=== PATIENT | male | born 1965 | race Caucasian/White ===

== ENCOUNTER 2024-03-17 09:55 | Inpatient (IN) | payer SELFPAY ==
[~2024-03-17] VITALS: Ht 172.7 cm; Wt 72.0 kg
[2024-03-17 09:57] VITALS: O2SAT 98
[2024-03-17] MEDS ORDERED: IBUP-2029 MT (14:05)
[2024-03-17 15:19] LABS: BASOPHILS % 0.6 % (0.0-2.0); DIFFERENTIAL COMMENT 0; EOSINOPHILS % 0.1 % (0.0-5.0); HEMATOCRIT. 34.2 % (42.0-52.0); HEMOGLOBIN. 11.6 g/dL (14.0-18.0); LYMPHOCYTES % 7.8 % (20.0-50.0); MEAN CORPUSCULAR HEMOGLOBIN 36.2 pg (28.0-32.0); MEAN CORPUSCULAR HGB CONC 33.9 g/dL (31.0-37.0); MEAN CORPUSCULAR VOLUME 106.7 fL (80.0-94.0); MEAN PLATELET VOLUME 9.5 fl (7.4-10.4); MONOCYTES % 10.8 % (2.0-8.0); NEUTROPHILS % 80.7 % (40.0-76.0); PLATELET 191 x1000/uL (130-400); RED BLOOD CELL COUNT 3.21 mill/uL (4.7-6.1); RED CELL DISTRIBUTION WIDTH 14.7 % (11.6-14.6); WHITE BLOOD COUNT 9.9 x1000/uL (4.5-11.0)
[2024-03-17 15:28] LABS: CHLORIDE 102 mEq/L (98-107); POTASSIUM 4.2 mEq/L (3.5-5.1); SODIUM 136 mEq/L (136-145)
[2024-03-17 15:29] LABS: CARBON DIOXIDE 24 mEq/L (21-32)
[2024-03-17 15:30] LABS: CALCIUM 8.5 mg/dL (8.7-10.4)
[2024-03-17 15:34] LABS: CREATININE 0.7 mg/dL (0.6-1.3)
[2024-03-17 15:35] LABS: ETHANOL BLOOD 11 mg/dL (<10); GLUCOSE 88 mg/dL (70-105); UREA NITROGEN BLOOD 8 mg/dL (9-23)
[2024-03-17 15:36] LABS: ALANINE AMINOTRANSFERASE 59 IU/L (10-49); ALBUMIN 2.9 g/dL (3.2-4.8); ASPARTATE AMINOTRANSFERASE 110 IU/L (<34)
[2024-03-17 15:37] LABS: BILIRUBIN DIRECT 0.8 mg/dL (<=3.0); BILIRUBIN TOTAL 1.3 mg/dL (0.1-1.0); PROTEIN TOTAL 6.3 g/dL (6.0-8.3)
[2024-03-17 15:38] LABS: INR 1.1; PROTHROMBIN TIME 11.8 sec (9.6-11.0)
[2024-03-17] MEDS ORDERED: CLOPIDOGREL 75MG TABLET PO ONE (16:30)
[2024-03-17] MEDS ORDERED: CHLORDIAZEPOXIDE 25MG CAPSULE PO ONE (16:30)
[2024-03-17] MEDS ORDERED: ASPIRIN 325MG EC TABLET PO ONE (16:30)
[2024-03-17 17:07] LABS: CLARITY URINE CLOUDY (CLEAR); COLOR URINE ORANGE (YELLOW); GLUCOSE URINE NEGATIVE (NEGATIVE); KETONES URINE 2+ (NEGATIVE); LEUKOCYTE ESTERASE URINE TRACE (NEGATIVE); NITRITE URINE NEGATIVE (NEGATIVE); OCCULT BLOOD URINE NEGATIVE (NEGATIVE); PH URINE 7.5 (4.5-8.0); PROTEIN URINE TRACE (NEGATIVE); SPECIFIC GRAVITY URINE 1.012 (1.005-1.030)
[2024-03-17 18:10] LABS: BACTERIA URINE 3+
[2024-03-17 18:11] LABS: TROPONIN I HIGH SENSITIVITY 116 ng/L (3.0-53)
[2024-03-17 18:11] LABS: RBC URINE 0-2 /hpf (0-2); SQUAMOUS EPITHELIAL CELL URINE FEW /lpf (RARE/1+); WBC URINE 0-2 /hpf (0-2)
[2024-03-17] MEDS: ASPIRIN 325MG EC TABLET PO NR (18:22)
[2024-03-17] MEDS: CLOPIDOGREL 75MG TABLET PO NR (18:22)
[2024-03-17] MEDS: CHLORDIAZEPOXIDE 25MG CAPSULE PO NR (18:22)
[2024-03-17 20:00] VITALS: BP 132/97; PULSE 114; RESP 16; TEMP 37.00296; O2SAT 98
[2024-03-17] MEDS ORDERED: ACETAMINOPHEN 325MG TABLET PO PRN ×2 (20:00)
[2024-03-17] MEDS ORDERED: DOCUSATE SODIUM 100MG CAPSULE PO PRN (20:00)
[2024-03-17] MEDS ORDERED: IPRATROPIUM/ALBUTEROL 0.5-3(2.5)MG/3ML NEB HHN PRN (20:00)
[2024-03-17] MEDS ORDERED: ONDANSETRON HCL 4MG/2ML INJ IV PRN (20:00)
[2024-03-17] MEDS ORDERED: IPRATROPIUM/ALBUTEROL 0.5-3(2.5)MG/3ML NEB HHN SCH (20:00)
[2024-03-17] MEDS ORDERED: GUAIFENESIN 200MG/10ML SUGAR FREE UDC PO PRN (20:00)
[2024-03-17] MEDS ORDERED: CEFTRIAXONE 1GM/50ML 50 ML IV SCH (20:30)
[2024-03-17] MEDS ORDERED: SODIUM CHLORIDE 0.9% 1,000 ML IV SCH (20:30)
[2024-03-17] MEDS ORDERED: FAMOTIDINE 20MG TABLET PO SCH (21:00)
[2024-03-17] MEDS ORDERED: FOLIC ACID 1 MG, THIAMINE HCL 100 MG, MVI, ADULT NO.1 10 ML in DEXTROSE 5% WATER 1,000 ML IV NR (21:30)
[2024-03-18] MEDS ORDERED: ENOXAPARIN 40MG/0.4ML SYR SUBCUT SCH (09:00)
[2024-03-18] MEDS ORDERED: FOLIC ACID 1MG TABLET PO SCH (09:00)
[2024-03-18] MEDS ORDERED: MULTIVITAMINS,THER W-MINERALS TABLET PO SCH (09:00)
[2024-03-20] MEDS ORDERED: THIAMINE HCL 100MG TABLET PO SCH (09:00)
== END 2024-03-17 23:00 | disposition left against medical advice (07) | DRG 280 ==
LOC: ER 09:55 → 5WST 16:26 → EDBEDREQ 16:30 → EDBEDREQSVC 16:30 → EDBEDREQTM 16:30
PROVIDERS: ADMIT Hospitalist; ATTEND Hospitalist
DX: K70.9 Alcoholic liver disease, unspecified (principal); I21.A1 Myocardial infarction type 2; E87.1 Hypo-osmolality and hyponatremia; D53.9 Nutritional anemia, unspecified; F10.129 Alcohol abuse with intoxication, unspecified; F17.210 Nicotine dependence, cigarettes, uncomplicated; N39.0 Urinary tract infection, site not specified; Y90.9 Presence of alcohol in blood, level not specified; R00.0 Tachycardia, unspecified; E86.9 Volume depletion, unspecified; M79.605 Pain in left leg; M79.604 Pain in right leg; Z59.00 Homelessness unspecified
CPT/HCPCS: 36415; 71045; 80048; 80076; 80320; 81003; 84484; 85025; 93005; 93970; 99285; J3411; J3490; J7070; G0480

== ENCOUNTER 2024-03-18 16:33 | Inpatient (IN) | payer OTHER, MEDICAID ==
[~2024-03-18] VITALS: Ht 177.8 cm; Wt 61.7 kg
[~2024-03-18 16:33] MED LIST: IBUP-2029 MT
[2024-03-18] MEDS ORDERED: LORAZEPAM 1MG TABLET PO ONE (17:00)
[2024-03-18] MEDS: TETANUS, DIPHTHERIA, PERTUSSIS VAC/PF 0.5ML (>10YR OLD) IM ONE (17:27)
[2024-03-18] MEDS: LORAZEPAM 1MG TABLET PO NR (17:28)
[2024-03-18 17:30] LABS: BASOPHILS % 0.6 % (0.0-2.0); DIFFERENTIAL COMMENT 0; EOSINOPHILS % 0.1 % (0.0-5.0); HEMATOCRIT. 32.5 % (42.0-52.0); HEMOGLOBIN. 10.7 g/dL (14.0-18.0); LYMPHOCYTES % 16.6 % (20.0-50.0); MEAN CORPUSCULAR HEMOGLOBIN 34.6 pg (28.0-32.0); MEAN CORPUSCULAR HGB CONC 32.9 g/dL (31.0-37.0); MEAN PLATELET VOLUME 10.1 fl (7.4-10.4); NEUTROPHILS % 72.7 % (40.0-76.0); PLATELET 193 x1000/uL (130-400); RED BLOOD CELL COUNT 3.09 mill/uL (4.7-6.1); RED CELL DISTRIBUTION WIDTH 14.4 % (11.6-14.6); WHITE BLOOD COUNT 9.4 x1000/uL (4.5-11.0)
[2024-03-18 17:31] LABS: CHLORIDE 98 mEq/L (98-107); POTASSIUM 3.3 mEq/L (3.5-5.1); SODIUM 132 mEq/L (136-145)
[2024-03-18 17:32] LABS: CARBON DIOXIDE 18 mEq/L (21-32)
[2024-03-18 17:33] LABS: CALCIUM 8.7 mg/dL (8.7-10.4)
[2024-03-18] MEDS: FOLIC ACID/VITAMIN B COMP W-C TABLET PO SCH (17:33)
[2024-03-18 17:38] LABS: CREATININE 0.8 mg/dL (0.6-1.3); GLUCOSE 72 mg/dL (70-105); TROPONIN I HIGH SENSITIVITY 30 ng/L (3.0-53); UREA NITROGEN BLOOD 14 mg/dL (9-23)
[2024-03-18 17:39] LABS: ETHANOL BLOOD < 10 mg/dL (<10)
[2024-03-18 17:44] LABS: INR 1.1; PROTHROMBIN TIME 11.7 sec (9.6-11.0)
[2024-03-18] MEDS: LEVETIRACETAM 1000MG PREMIX 100 ML IV ONE (18:52)
[2024-03-18 19:45] LABS: TROPONIN I HIGH SENSITIVITY 30 ng/L (3.0-53)
[2024-03-18 20:43] LABS: TROPONIN I HIGH SENSITIVITY 30 ng/L (3.0-53)
[2024-03-19] VITALS (43 sets, daily range): BP systolic 91–126; BP diastolic 58–102; PULSE 71–109; RESP 13–23; TEMP 35.89176–36.696; O2SAT 97–100
[2024-03-19] MEDS ORDERED: ONDANSETRON HCL 4MG/2ML INJ IV PRN (10:30)
[2024-03-19] MEDS ORDERED: KCL 20MEQ/100ML PREMIX 100 ML IV ONE (10:45)
[2024-03-19] MEDS: DEXT 5%/LACTATED RINGERS 1,000 ML IV SCH (11:06)
[2024-03-19] MEDS: KCL 10MEQ/50ML PREMIX 50 ML IV SCH (11:21)
[2024-03-19] MEDS ORDERED: IPRATROPIUM/ALBUTEROL 0.5-3(2.5)MG/3ML NEB HHN PRN (14:30)
[2024-03-19 15:36] LABS: CLARITY URINE CLEAR (CLEAR); COLOR URINE ORANGE (YELLOW); GLUCOSE URINE NEGATIVE (NEGATIVE); KETONES URINE 4+ (NEGATIVE); LEUKOCYTE ESTERASE URINE 1+ (NEGATIVE); NITRITE URINE POSITIVE (NEGATIVE); OCCULT BLOOD URINE NEGATIVE (NEGATIVE); PH URINE 6.5 (4.5-8.0); PROTEIN URINE TRACE (NEGATIVE); SPECIFIC GRAVITY URINE 1.021 (1.005-1.030)
[2024-03-19 15:46] LABS: *AMPHETAMINES SCREEN URINE NEGATIVE (NEGATIVE); *BARBITURATES SCREEN URINE NEGATIVE (NEGATIVE); *BENZODIAZEPINES SCREEN URINE PRESUMPTIVE POSITIVE (NEGATIVE); *COCAINE SCREEN URINE NEGATIVE (NEGATIVE); CANNABINOID URINE SCREEN NEGATIVE (NEGATIVE); ECSTASY MDMA SCREEN URINE NEGATIVE (NEGATIVE); METHADONE URINE SCREEN NEGATIVE (NEGATIVE); OPIATES URINE SCREEN NEGATIVE (NEGATIVE); PHENCYCLIDINE URINE SCREEN NEGATIVE (NEGATIVE)
[2024-03-19 16:13] LABS: SQUAMOUS EPITHELIAL CELL URINE FEW /lpf (RARE/1+)
[2024-03-19 16:14] LABS: RBC URINE 0-2 /hpf (0-2)
[2024-03-19 16:15] LABS: BACTERIA URINE 1+
[2024-03-19 16:16] LABS: MUCUS URINE 1+ /lpf (NONE/TRACE)
[2024-03-19] MEDS: LEVETIRACETAM 500MG PREMIX 100 ML IV SCH (21:06)
[2024-03-19] MEDS: PANTOPRAZOLE SODIUM 40 MG/VIAL IV SCH (21:06)
[2024-03-20] VITALS: BP 97/59; PULSE 81; RESP 19; TEMP 36.50292; O2SAT 100
[2024-03-20 04:00] VITALS: BP 95/61; PULSE 135; RESP 20; TEMP 36.50292; O2SAT 98
[2024-03-20 08:00] VITALS: BP 90/55; PULSE 63; RESP 18; TEMP 36.61404; O2SAT 98
[2024-03-20 08:35] LABS: BASOPHILS % 0.8 % (0.0-2.0); DIFFERENTIAL COMMENT 0; EOSINOPHILS % 1.1 % (0.0-5.0); HEMATOCRIT. 31.2 % (42.0-52.0); HEMOGLOBIN. 10.3 g/dL (14.0-18.0); LYMPHOCYTES % 28.2 % (20.0-50.0); MEAN CORPUSCULAR HEMOGLOBIN 34.8 pg (28.0-32.0); MEAN CORPUSCULAR HGB CONC 32.9 g/dL (31.0-37.0); MEAN CORPUSCULAR VOLUME 105.7 fL (80.0-94.0); MEAN PLATELET VOLUME 9.8 fl (7.4-10.4); MONOCYTES % 13.4 % (2.0-8.0); NEUTROPHILS % 56.5 % (40.0-76.0); PLATELET 195 x1000/uL (130-400); RED BLOOD CELL COUNT 2.95 mill/uL (4.7-6.1); RED CELL DISTRIBUTION WIDTH 14.7 % (11.6-14.6); WHITE BLOOD COUNT 7.7 x1000/uL (4.5-11.0)
[2024-03-20 08:42] LABS: CALCIUM 8.9 mg/dL (8.7-10.4); CARBON DIOXIDE 26 mEq/L (21-32); CHLORIDE 101 mEq/L (98-107); POTASSIUM 3.2 mEq/L (3.5-5.1); SODIUM 137 mEq/L (136-145)
[2024-03-20 08:48] LABS: CREATININE 0.8 mg/dL (0.6-1.3); GLUCOSE 91 mg/dL (70-105); UREA NITROGEN BLOOD 12 mg/dL (9-23)
[2024-03-20] MEDS ORDERED: PANTOPRAZOLE SODIUM 40 MG/VIAL IV SCH (09:00)
[2024-03-20 12:00] VITALS: BP 121/75; PULSE 96; RESP 20; TEMP 36.72516; O2SAT 95
[2024-03-20] MEDS ORDERED: KCL 20MEQ/100ML PREMIX 100 ML IV SCH (12:15)
[2024-03-20] MEDS: POTASSIUM CHLORIDE 40MEQ in DEXT 5% WATER 250ML IV NR (14:00)
[2024-03-20] MEDS: CEFTRIAXONE 1GM/50ML 50 ML IV SCH (14:00)
[2024-03-20 16:00] VITALS: BP 111/72; PULSE 106; RESP 20; TEMP 36.61404; O2SAT 97
[2024-03-20 20:00] VITALS: BP 109/86; PULSE 101; RESP 19; TEMP 36.72516; O2SAT 96
[2024-03-21] VITALS: BP 122/83; PULSE 102; RESP 17; TEMP 36.6696; O2SAT 99
[2024-03-21 04:00] VITALS: BP 117/80; PULSE 87; RESP 18; TEMP 36.72516; O2SAT 100
[2024-03-21 09:00] VITALS: BP 134/87; PULSE 89; RESP 18; TEMP 36.72516; O2SAT 96
[2024-03-21 12:00] VITALS: BP 132/90; PULSE 99; RESP 19; TEMP 36.3918; O2SAT 96
[2024-03-21 16:00] VITALS: BP 137/87; PULSE 83; RESP 17; TEMP 36.16956; O2SAT 98
[2024-03-21 20:00] VITALS: BP 126/58; PULSE 86; RESP 18; TEMP 36.114; O2SAT 98
[2024-03-21] MEDS: KCL 20MEQ/100ML PREMIX 100 ML IV SCH (23:14)
[2024-03-22] VITALS: BP 141/102; PULSE 108; RESP 18; TEMP 36.3918; O2SAT 98
[2024-03-22] MEDS: KCL 20MEQ/100ML PREMIX 100 ML IV SCH (01:19)
[2024-03-22 04:00] VITALS: BP 139/94; PULSE 97; RESP 18; TEMP 36.44736; O2SAT 98
[2024-03-22 07:20] LABS: CHLORIDE 105 mEq/L (98-107); POTASSIUM 3.3 mEq/L (3.5-5.1); SODIUM 140 mEq/L (136-145)
[2024-03-22 07:21] LABS: CARBON DIOXIDE 27 mEq/L (21-32)
[2024-03-22 07:22] LABS: CALCIUM 8.4 mg/dL (8.7-10.4)
[2024-03-22 07:26] LABS: CREATININE 0.8 mg/dL (0.6-1.3); GLUCOSE 111 mg/dL (70-105); UREA NITROGEN BLOOD 9 mg/dL (9-23)
[2024-03-22 08:00] VITALS: BP 136/87; PULSE 97; RESP 18; TEMP 36.78072; O2SAT 97
[2024-03-22 12:00] VITALS: BP 115/70; PULSE 102; RESP 18; TEMP 36.44736; O2SAT 97
[2024-03-22] MEDS ORDERED: FOLI-43 MT (14:13)
[2024-03-22] MEDS ORDERED: KEPP500 MT (14:13)
[2024-03-22] MEDS ORDERED: THIA100T88 MT (14:13)
[2024-03-22] MEDS ORDERED: MULT-230 MT (14:13)
[2024-03-22 16:00] VITALS: BP 128/88; PULSE 111; RESP 18; TEMP 36.72516; O2SAT 96
[2024-03-22] MEDS: POTASSIUM CHLORIDE 20MEQ TABLET SR PO NR (16:01)
[2024-03-22 16:49] VITALS: BP 128/88; PULSE 111; TEMP 98.1; O2SAT 96
== END 2024-03-22 18:25 | disposition home or self-care (01) | DRG 55 ==
LOC: ER 16:33 → MICUSO 18:48 → EDBEDREQ 18:54 → EDBEDREQSVC 18:54 → EDBEDREQTM 18:54 → MICUNO 03-19 07:29 → 7EST 03-19 18:28
PROVIDERS: ADMIT Family Medicine Adult Medicine; ATTEND Family Medicine Adult Medicine
DX: S06.35AA Traumatic hemorrhage of left cerebrum with loss of consciousness status unknown, initial encounter (principal); E87.1 Hypo-osmolality and hyponatremia; D53.9 Nutritional anemia, unspecified; W01.0XXA Fall on same level from slipping, tripping and stumbling without subsequent striking against object, initial encounter; E87.6 Hypokalemia; F10.10 Alcohol abuse, uncomplicated; F17.210 Nicotine dependence, cigarettes, uncomplicated; Y90.9 Presence of alcohol in blood, level not specified; F12.10 Cannabis abuse, uncomplicated; G35 Multiple sclerosis; Y99.8 Other external cause status; Y93.89 Activity, other specified; Y92.89 Other specified places as the place of occurrence of the external cause; I25.2 Old myocardial infarction
CPT/HCPCS: 36415; 70486; 71045; 80048; 80305; 80320; 81003; 84484; 85025; 90715; 93005; 97116; 97162; 97166; 97530; 99291; J0696; J1953; J2470; J3480; J7060; J7121; G0480

== ENCOUNTER 2024-03-30 15:51 | Emergency (ER) | payer MEDICAID, OTHER ==
[~2024-03-30] VITALS: Ht 170.2 cm; Wt 64.0 kg
[~2024-03-30 15:51] MED LIST changes: +FOLI-43 MT; -IBUP-2029 MT; +KEPP500 MT; +MULT-230 MT; +THIA100T88 MT
[2024-03-30 15:53] VITALS: O2SAT 98
[2024-03-30 16:46] LABS: BASOPHILS % 1.4 % (0.0-2.0); DIFFERENTIAL COMMENT 0; EOSINOPHILS % 0.5 % (0.0-5.0); HEMATOCRIT. 34.6 % (42.0-52.0); HEMOGLOBIN. 11.5 g/dL (14.0-18.0); LYMPHOCYTES % 14.8 % (20.0-50.0); MEAN CORPUSCULAR HEMOGLOBIN 34.9 pg (28.0-32.0); MEAN CORPUSCULAR HGB CONC 33.2 g/dL (31.0-37.0); MEAN CORPUSCULAR VOLUME 104.9 fL (80.0-94.0); MEAN PLATELET VOLUME 8.4 fl (7.4-10.4); MONOCYTES % 8.8 % (2.0-8.0); NEUTROPHILS % 74.5 % (40.0-76.0); PLATELET 454 x1000/uL (130-400); RED CELL DISTRIBUTION WIDTH 14.3 % (11.6-14.6); WHITE BLOOD COUNT 12.6 x1000/uL (4.5-11.0)
[2024-03-30 16:51] LABS: CHLORIDE 105 mEq/L (98-107); POTASSIUM 3.9 mEq/L (3.5-5.1); SODIUM 137 mEq/L (136-145)
[2024-03-30 16:52] LABS: CALCIUM 8.2 mg/dL (8.7-10.4); CARBON DIOXIDE 22 mEq/L (21-32)
[2024-03-30 16:57] LABS: CREATININE 0.6 mg/dL (0.6-1.3); ETHANOL BLOOD 131 mg/dL (<10); GLUCOSE 89 mg/dL (70-105); UREA NITROGEN BLOOD 8 mg/dL (9-23)
[2024-03-30 16:59] LABS: TROPONIN I HIGH SENSITIVITY 4 ng/L (3.0-53)
[2024-03-30 18:30] VITALS: BP 140/82; PULSE 112; RESP 16; TEMP 36.72516; O2SAT 100
== END 2024-03-30 20:54 | disposition home or self-care (01) ==
LOC: ER 15:51
DX: F19.10 Other psychoactive substance abuse, uncomplicated (principal); R41.82 Altered mental status, unspecified
CPT/HCPCS: 80048; 80320; 85025; 84484; 36415; 71045; 70450; 72125; 99284; Z7610 ×4; G0480

== ENCOUNTER 2024-10-30 19:22 | Inpatient (IN) | payer MEDICAID ==
[~2024-10-30] VITALS: Ht 177.8 cm; Wt 75.3 kg
[~2024-10-30 19:22] MED LIST changes: +COR6 PO; +FERR-63 PO
[2024-10-30 22:00] VITALS: BP 104/66; PULSE 100; RESP 20; TEMP 36.5
[2024-10-31] MEDS ORDERED: ONDANSETRON HCL 4MG/2ML INJ IV PRN (01:30)
[2024-10-31] MEDS ORDERED: DOCUSATE SODIUM 100MG CAPSULE PO PRN (01:30)
[2024-10-31] MEDS ORDERED: CLONIDINE 0.1MG TABLET PO PRN (01:30)
[2024-10-31] MEDS: DEXT 5%/0.45% NACL 1000ML 1,000 ML IV SCH (05:00)
[2024-10-31] MEDS: GABAPENTIN 300MG CAPSULE PO SCH (05:27)
[2024-10-31] MEDS: ENOXAPARIN 80MG/0.8ML SYR SUBCUT SCH (06:27)
[2024-10-31] MEDS: PANTOPRAZOLE 40MG DR TABLET PO SCH (06:37)
[2024-10-31 06:45] LABS: BASOPHILS % 1.4 % (0.0-2.0); EOSINOPHILS % 5.2 % (0.0-5.0); HEMATOCRIT. 25.9 % (42.0-52.0); HEMOGLOBIN. 8.6 g/dL (14.0-18.0); LYMPHOCYTES % 26.9 % (20.0-50.0); MEAN PLATELET VOLUME 8.3 fl (7.4-10.4); MONOCYTES % 12.5 % (2.0-8.0); NEUTROPHILS % 54.0 % (40.0-76.0); PLATELET 832 x1000/uL (130-400); RED BLOOD CELL COUNT 2.85 mill/uL (4.7-6.1); RED CELL DISTRIBUTION WIDTH 17.0 % (11.6-14.6)
[2024-10-31 07:04] LABS: CREATININE 0.7 mg/dL (0.6-1.3); UREA NITROGEN BLOOD 11 mg/dL (9-23)
[2024-10-31 07:06] LABS: ASPARTATE AMINOTRANSFERASE 18 IU/L (<34); BILIRUBIN TOTAL 0.2 mg/dL (0.1-1.0); PROTEIN TOTAL 7.1 g/dL (6.0-8.3)
[2024-10-31] MEDS: NICOTINE 14MG PATCH TD SCH (09:40)
[2024-10-31] MEDS: BACITRACIN 14GM TUBE TOP SCH (09:41)
[2024-10-31] MEDS: SODIUM HYPOCHLORITE 0.125% 473ML SOLUTION TOP SCH (09:41)
[2024-10-31] MEDS: CHOLECALCIFEROL (D3) 1000 UNIT TABLET PO SCH (09:42)
[2024-10-31] MEDS: THIAMINE HCL 100MG TABLET PO SCH (09:43)
[2024-10-31] MEDS: FERROUS SULFATE 325MG TABLET PO SCH (09:43)
[2024-10-31] MEDS: LACTOBACILLUS RHAMNOSUS GG CAP PO SCH (09:43)
[2024-10-31] MEDS: MUPIROCIN 2% OINT 15GM TOP SCH (09:44)
[2024-10-31] MEDS: ACETAMINOPHEN 325MG TABLET PO PRN (10:31)
[2024-10-31 20:00] VITALS: BP 126/83; PULSE 109; RESP 18; TEMP 36.7; O2SAT 95
[2024-10-31] MEDS: GUAIFENESIN 200MG/10ML SUGAR FREE UDC PO PRN (21:00)
[2024-10-31] MEDS: MELATONIN 3MG TABLET PO SCH (21:01)
[2024-11-01 08:00] VITALS: BP 121/62; PULSE 88; RESP 20; TEMP 36.6; O2SAT 99
[2024-11-01 20:00] VITALS: BP 139/69; PULSE 101; RESP 19; TEMP 36.7; O2SAT 99
[2024-11-02 07:02] LABS: HEMATOCRIT. 24.5 % (42.0-52.0); HEMOGLOBIN. 8.3 g/dL (14.0-18.0); MEAN PLATELET VOLUME 8.4 fl (7.4-10.4); PLATELET 679 x1000/uL (130-400); RED BLOOD CELL COUNT 2.65 mill/uL (4.7-6.1); RED CELL DISTRIBUTION WIDTH 17.7 % (11.6-14.6)
[2024-11-02 07:20] LABS: CREATININE 0.7 mg/dL (0.6-1.3)
[2024-11-02 07:21] LABS: UREA NITROGEN BLOOD 12 mg/dL (9-23)
[2024-11-02 07:22] LABS: ASPARTATE AMINOTRANSFERASE 20 IU/L (<34)
[2024-11-02 07:23] LABS: BILIRUBIN TOTAL < 0.2 mg/dL (0.1-1.0); PROTEIN TOTAL 7.4 g/dL (6.0-8.3)
[2024-11-02 08:00] VITALS: BP 138/87; PULSE 102; RESP 20; TEMP 36.9; O2SAT 95
[2024-11-02] MEDS ORDERED: PERMETHRIN 5% CREAM 60GM TOP SCH (12:45)
[2024-11-02 14:40] LABS: EOSINOPHILS % MANUAL 9.0 % (0.0-5.0); LYMPHOCYTES % MANUAL 38.0 % (20.0-50.0); MONOCYTES % MANUAL 13.0 % (2.0-8.0); NEUTROPHILS % MANUAL 40.0 % (45.0-75.0); PLATELET ESTIMATE INCREASED
[2024-11-02] MEDS: PIPERONYL/PYRETHRINS (RID) 120 ML SHAMPOO TOP SCH (15:11)
[2024-11-02] MEDS ORDERED: IPRATROPIUM/ALBUTEROL 0.5-3(2.5)MG/3ML NEB HHN PRN (18:45)
[2024-11-02 20:00] VITALS: BP 119/66; PULSE 108; RESP 20; TEMP 36.9; O2SAT 95
[2024-11-03 08:00] VITALS: BP 126/66; PULSE 99; RESP 20; TEMP 36.4; O2SAT 99
[2024-11-03] MEDS: MAGNESIUM OXIDE 400MG TABLET PO SCH (16:53)
[2024-11-03 20:00] VITALS: BP 115/77; PULSE 112; RESP 18; TEMP 36.4; O2SAT 96
[2024-11-04] MEDS: LEVOTHYROXINE SODIUM 25MCG TABLET PO SCH (06:20)
[2024-11-04 08:00] VITALS: BP 120/67; PULSE 114; RESP 18; TEMP 36.4; O2SAT 97
[2024-11-04 20:00] VITALS: BP 121/78; PULSE 120; RESP 20; TEMP 37; O2SAT 97
[2024-11-05 06:42] LABS: HEMATOCRIT. 27.2 % (42.0-52.0); HEMOGLOBIN. 8.7 g/dL (14.0-18.0); MEAN PLATELET VOLUME 8.1 fl (7.4-10.4); PLATELET 745 x1000/uL (130-400); RED BLOOD CELL COUNT 2.97 mill/uL (4.7-6.1); RED CELL DISTRIBUTION WIDTH 18.2 % (11.6-14.6)
[2024-11-05 06:46] LABS: CREATININE 0.7 mg/dL (0.6-1.3); UREA NITROGEN BLOOD 13 mg/dL (9-23)
[2024-11-05 08:00] VITALS: BP 130/78; PULSE 89; RESP 20; TEMP 36.6; O2SAT 100
[2024-11-05 11:23] LABS: BAND% 5.0 % (1.0-6.0); EOSINOPHILS % MANUAL 4.0 % (0.0-5.0); LYMPHOCYTES % MANUAL 15.0 % (20.0-50.0); METAMYELOCYTES % 3.0 % (0-0); MONOCYTES % MANUAL 15.0 % (2.0-8.0); NEUTROPHILS % MANUAL 58.0 % (45.0-75.0)
[2024-11-05 11:24] LABS: PLATELET ESTIMATE INCREASED
[2024-11-05] MEDS: CARVEDILOL 3.125 MG TABLET PO SCH ×2 (12:30→21:40)
[2024-11-05 22:00] VITALS: BP 129/88; PULSE 78; RESP 16; TEMP 36.5; O2SAT 100
[2024-11-06 06:12] LABS: PROLACTIN 29.4 ng/mL (3.6-25.2)
[2024-11-06 08:00] VITALS: BP 103/60; PULSE 105; RESP 18; TEMP 36.3; O2SAT 98
[2024-11-06] MEDS: MULTIVITAMINS,THER W-MINERALS TABLET PO SCH (08:07)
[2024-11-06] MEDS: ASCORBIC ACID 500 MG TABLET PO SCH (08:07)
[2024-11-06 09:10] LABS: FOLICLE STIMULATING HORMONE 15.8 mIU/mL (1.5-12.4); LUTEINIZING HORMONE 16.7 mIU/mL (1.7-8.6); THYROID PEROXIDASE ANTIBODY 10.0 IU/mL (0-34)
[2024-11-06 20:00] VITALS: BP 123/69; PULSE 100; RESP 20; TEMP 36.8; O2SAT 97
[2024-11-07 08:00] VITALS: BP 118/63; PULSE 83; RESP 18; TEMP 36.5; O2SAT 98
[2024-11-07 20:00] VITALS: BP 124/71; PULSE 113; RESP 18; TEMP 37.1; O2SAT 96
[2024-11-08 07:16] LABS: BASOPHILS % 0.5 % (0.0-2.0); EOSINOPHILS % 4.4 % (0.0-5.0); HEMATOCRIT. 29.3 % (42.0-52.0); HEMOGLOBIN. 9.5 g/dL (14.0-18.0); LYMPHOCYTES % 26.6 % (20.0-50.0); MEAN PLATELET VOLUME 8.1 fl (7.4-10.4); MONOCYTES % 13.8 % (2.0-8.0); NEUTROPHILS % 54.7 % (40.0-76.0); PLATELET 665 x1000/uL (130-400); RED BLOOD CELL COUNT 3.17 mill/uL (4.7-6.1); RED CELL DISTRIBUTION WIDTH 18.2 % (11.6-14.6)
[2024-11-08 07:28] LABS: CREATININE 0.7 mg/dL (0.6-1.3); UREA NITROGEN BLOOD 19 mg/dL (9-23)
[2024-11-08 08:00] VITALS: BP 125/62; PULSE 68; RESP 18; TEMP 36.4; O2SAT 98
[2024-11-08 20:00] VITALS: BP 114/60; PULSE 112; PULSE 98; RESP 19; TEMP 37.1; O2SAT 98
[2024-11-09 08:00] VITALS: BP 110/67; PULSE 103; RESP 20; TEMP 36.2; O2SAT 98
[2024-11-09] MEDS: SULFAMETHOXAZOLE/TRIMETHOPRIM 800/160MG TABLET PO SCH (09:12)
[2024-11-09 20:00] VITALS: BP 127/78; PULSE 104; RESP 19; TEMP 36.6; O2SAT 97
[2024-11-10 04:07] LABS: TESTOSTERONE FREE 0.8 pg/mL (7.2-24.0)
[2024-11-10 08:00] VITALS: BP 107/59; PULSE 113; RESP 20; TEMP 36.5; O2SAT 98
[2024-11-10 20:00] VITALS: BP 126/76; PULSE 135; RESP 18; TEMP 36.4; O2SAT 97
[2024-11-11 08:00] VITALS: BP 101/69; PULSE 111; RESP 20; TEMP 36.1; O2SAT 97
[2024-11-11] MEDS: CARVEDILOL 6.25 MG TABLET PO SCH ×2 (09:39→21:14)
[2024-11-11 20:00] VITALS: BP 122/76; PULSE 107; RESP 19; TEMP 36.8; O2SAT 98
[2024-11-11 20:55] LABS: T4 FREE 0.83 ng/dL (0.89-1.76)
[2024-11-12 08:00] VITALS: BP 124/66; PULSE 75; RESP 19; TEMP 36.5; O2SAT 99
[2024-11-12 20:00] VITALS: BP 100/55; PULSE 109; RESP 16; TEMP 36.8; O2SAT 99
[2024-11-13] MEDS: LEVOTHYROXINE SODIUM 50MCG TABLET PO SCH (06:11)
[2024-11-13 08:00] VITALS: BP 110/60; PULSE 109; RESP 20; TEMP 36.1; O2SAT 98
[2024-11-13] MEDS ORDERED: CEFEPIME 2GM IN DEXT 5% 100ML IV SCH (08:45)
[2024-11-13] MEDS: CEFEPIME 2GM PREMIX 100ML IV SCH (10:38)
[2024-11-13 20:00] VITALS: BP 120/69; PULSE 107; RESP 18; TEMP 37.1; O2SAT 99
[2024-11-14 08:00] VITALS: BP 119/69; PULSE 70; RESP 19; TEMP 36.4; O2SAT 98
[2024-11-14 20:00] VITALS: BP 115/69; PULSE 78; RESP 18; TEMP 36.6; O2SAT 98
[2024-11-15 08:00] VITALS: BP 157/107; PULSE 79; RESP 18; TEMP 36.6; O2SAT 98
[2024-11-15 20:00] VITALS: BP 103/53; PULSE 108; RESP 16; TEMP 36.5; O2SAT 97
[2024-11-16 08:00] VITALS: BP 110/64; PULSE 80; RESP 20; TEMP 36.7; O2SAT 97
[2024-11-16 20:00] VITALS: BP 100/64; PULSE 67; RESP 20; TEMP 36.7; O2SAT 96
[2024-11-17 08:00] VITALS: BP 98/62; PULSE 96; RESP 18; TEMP 36.5; O2SAT 100
[2024-11-17 20:00] VITALS: BP 114/69; PULSE 84; RESP 20; TEMP 36.9; O2SAT 97
[2024-11-18 08:00] VITALS: BP 105/53; PULSE 103; RESP 20; TEMP 36.6; O2SAT 98
[2024-11-18 21:00] VITALS: BP 97/46; PULSE 106; RESP 18; TEMP 36.6; O2SAT 97
[2024-11-19 08:00] VITALS: BP 109/58; PULSE 92; RESP 18; TEMP 36.7; O2SAT 99
[2024-11-19 18:42] LABS: T4 FREE 0.82 ng/dL (0.89-1.76)
[2024-11-19 20:00] VITALS: BP 121/61; PULSE 103; RESP 18; TEMP 36.3; O2SAT 99
[2024-11-20] MEDS: LEVOTHYROXINE SODIUM 75MCG TABLET PO SCH (06:31)
[2024-11-20 08:00] VITALS: BP 109/55; PULSE 99; RESP 20; TEMP 36.6; O2SAT 98
[2024-11-20 20:00] VITALS: BP 128/74; PULSE 74; RESP 19; TEMP 36.4; O2SAT 99
[2024-11-21 08:00] VITALS: BP 95/53; PULSE 94; RESP 20; TEMP 36.5; O2SAT 100
[2024-11-21 09:12] LABS: FOLICLE STIMULATING HORMONE 15.0 mIU/mL (1.5-12.4); LUTEINIZING HORMONE 19.7 mIU/mL (1.7-8.6); PROLACTIN 15.1 ng/mL (3.6-25.2)
[2024-11-21 20:00] VITALS: BP 108/66; PULSE 98; RESP 20; TEMP 37.1; O2SAT 98
[2024-11-22 08:00] VITALS: BP 105/51; PULSE 99; RESP 20; TEMP 36.2; O2SAT 97
[2024-11-22 20:00] VITALS: BP 103/51; PULSE 101; RESP 20; TEMP 36.4; O2SAT 97
[2024-11-22] MEDS: FAMOTIDINE 20MG TABLET PO SCH (21:53)
[2024-11-23 04:09] LABS: TESTOSTERONE FREE 0.9 pg/mL (7.2-24.0)
[2024-11-23 08:00] VITALS: BP 120/63; PULSE 79; RESP 19; TEMP 36.7; O2SAT 98
[2024-11-23 20:00] VITALS: BP 124/66; PULSE 78; RESP 19; TEMP 36.7; O2SAT 98
[2024-11-24 08:00] VITALS: BP 107/64; PULSE 89; RESP 20; TEMP 36.6; O2SAT 97
[2024-11-24 20:00] VITALS: BP 116/69; PULSE 89; RESP 20; TEMP 36.1; O2SAT 97
[2024-11-25] MEDS: LEVOTHYROXINE SODIUM 100MCG TABLET PO SCH (06:30)
[2024-11-25 08:00] VITALS: BP 115/60; PULSE 83; RESP 20; TEMP 36.7; O2SAT 100
[2024-11-25] MEDS ORDERED: HYDROXYZINE 25MG TABLET PO PRN (09:00)
[2024-11-25 20:00] VITALS: BP 118/64; PULSE 98; RESP 18; TEMP 37.1; O2SAT 97
[2024-11-26 08:00] VITALS: BP 123/67; PULSE 79; RESP 19; TEMP 36.6; O2SAT 98
[2024-11-26 20:00] VITALS: BP 109/70; PULSE 100; RESP 16; TEMP 36.8; O2SAT 96
[2024-11-27 08:00] VITALS: BP 112/61; PULSE 99; TEMP 36.1; O2SAT 98
[2024-11-27 20:00] VITALS: BP 118/72; PULSE 95; RESP 18; TEMP 36.4; O2SAT 97
[2024-11-28 08:00] VITALS: BP 118/65; PULSE 82; RESP 19; TEMP 36.5; O2SAT 99
[2024-11-28] MEDS: NEOMY SULF/BACITRAC ZN/POLY OINT 28GM TOP SCH (08:54)
[2024-11-28 20:00] VITALS: BP 113/69; PULSE 98; RESP 18; TEMP 36.5; O2SAT 97
[2024-11-29 08:00] VITALS: BP 111/68; PULSE 103; RESP 18; TEMP 36.6; O2SAT 98
[2024-11-29] MEDS ORDERED: ACETAMINOPHEN 325MG TABLET PO PRN (16:00)
[2024-11-29 20:00] VITALS: BP 114/58; PULSE 101; RESP 18; TEMP 36.4; O2SAT 98
[2024-11-30 08:00] VITALS: BP 107/56; PULSE 97; RESP 20; TEMP 36.9; O2SAT 100
[2024-11-30 20:00] VITALS: BP 110/59; PULSE 102; RESP 18; TEMP 36.6; O2SAT 97
[2024-12-01 08:00] VITALS: BP 108/67; PULSE 95; RESP 18; TEMP 36.6; O2SAT 99
[2024-12-01 20:00] VITALS: BP 121/65; PULSE 102; RESP 18; TEMP 36.5; O2SAT 98
[2024-12-02 08:00] VITALS: BP 110/70; PULSE 87; RESP 20; TEMP 36.6; O2SAT 100
[2024-12-02 20:00] VITALS: BP 126/69; PULSE 100; RESP 18; TEMP 37.2; O2SAT 96
[2024-12-03 06:06] LABS: BASOPHILS % 1.8 % (0.0-2.0); EOSINOPHILS % 5.7 % (0.0-5.0); HEMATOCRIT. 29.8 % (42.0-52.0); HEMOGLOBIN. 10.2 g/dL (14.0-18.0); LYMPHOCYTES % 22.9 % (20.0-50.0); MEAN PLATELET VOLUME 7.7 fl (7.4-10.4); MONOCYTES % 14.9 % (2.0-8.0); NEUTROPHILS % 54.7 % (40.0-76.0); PLATELET 484 x1000/uL (130-400); RED BLOOD CELL COUNT 3.28 mill/uL (4.7-6.1); RED CELL DISTRIBUTION WIDTH 15.7 % (11.6-14.6)
[2024-12-03 06:38] LABS: CREATININE 0.7 mg/dL (0.6-1.3); UREA NITROGEN BLOOD 20 mg/dL (9-23)
[2024-12-03 06:40] LABS: ASPARTATE AMINOTRANSFERASE 13 IU/L (<34); BILIRUBIN TOTAL 0.3 mg/dL (0.1-1.0); PHOSPHORUS 5.2 mg/dL (2.5-4.9); PROTEIN TOTAL 7.7 g/dL (6.0-8.3)
[2024-12-03 08:00] VITALS: BP 114/71; PULSE 104; RESP 19; TEMP 36.5; O2SAT 99
[2024-12-03 20:00] VITALS: BP 107/48; PULSE 99; RESP 18; TEMP 36.8; O2SAT 98
[2024-12-04 08:00] VITALS: BP 118/66; PULSE 99; RESP 20; TEMP 36.7; O2SAT 97
[2024-12-04 20:00] VITALS: BP 119/67; PULSE 99; RESP 20; TEMP 37.4; O2SAT 99
[2024-12-05 08:00] VITALS: BP 104/55; PULSE 99; RESP 18; TEMP 36.5; O2SAT 98
[2024-12-05 20:00] VITALS: BP 112/60; PULSE 101; RESP 18; TEMP 36.5; O2SAT 97
[2024-12-06 08:00] VITALS: BP 107/61; PULSE 90; RESP 18; TEMP 35.8; O2SAT 97
[2024-12-06 09:30] LABS: T4 FREE 1.01 ng/dL (0.89-1.76)
[2024-12-06 20:00] VITALS: BP 112/66; PULSE 102; RESP 18; TEMP 37.1; O2SAT 95
[2024-12-07 08:00] VITALS: BP 103/56; PULSE 96; RESP 18; TEMP 36.9; O2SAT 97
[2024-12-07 08:53] LABS: PLATELET 447 x1000/uL (130-400); RED BLOOD CELL COUNT 3.40 mill/uL (4.7-6.1); RED CELL DISTRIBUTION WIDTH 15.6 % (11.6-14.6)
[2024-12-07 09:00] LABS: CREATININE 0.7 mg/dL (0.6-1.3)
[2024-12-07 09:01] LABS: UREA NITROGEN BLOOD 21 mg/dL (9-23)
[2024-12-07 09:03] LABS: PHOSPHORUS 4.9 mg/dL (2.5-4.9)
[2024-12-07 12:00] VITALS: BP 118/61; PULSE 91; RESP 18; TEMP 36.4; O2SAT 98
[2024-12-07 20:00] VITALS: BP 120/63; PULSE 89; RESP 19; TEMP 36.6; O2SAT 96
[2024-12-08 08:00] VITALS: BP 137/53; PULSE 100; RESP 18; TEMP 36.7; O2SAT 97
[2024-12-08 20:00] VITALS: BP 116/72; PULSE 100; RESP 18; TEMP 36.7; O2SAT 96
[2024-12-09] MEDS: LEVOTHYROXINE SODIUM 88MCG TABLET PO SCH (06:24)
[2024-12-09 08:05] VITALS: BP 101/54; PULSE 90; RESP 19; TEMP 36.7
[2024-12-09] MEDS ORDERED: CALAMINE LOTION 120ML TOP PRN (15:30)
[2024-12-09 20:00] VITALS: BP 133/73; PULSE 100; RESP 19; TEMP 37.2
[2024-12-10 08:01] VITALS: BP 101/61; PULSE 98; RESP 18; TEMP 36.6
[2024-12-10 20:00] VITALS: BP 121/63; PULSE 100; RESP 18; TEMP 36.9; O2SAT 98
[2024-12-11 08:00] VITALS: BP 91/53; PULSE 88; RESP 18; TEMP 36.4; O2SAT 97
[2024-12-11] MEDS ORDERED: PANTOT AC/MIN OIL/PET HY-PHL OINT (AQUAPHOR) TOP PRN (11:00)
[2024-12-11] MEDS ORDERED: DIPHENHYDRAMINE 50MG CAPSULE PO PRN (11:45)
[2024-12-11 20:00] VITALS: BP 118/63; PULSE 105; RESP 18; TEMP 36.9; O2SAT 98
[2024-12-12 08:00] VITALS: BP 98/60; PULSE 89; RESP 16; TEMP 36.1; O2SAT 98
[2024-12-12 20:00] VITALS: BP 125/76; PULSE 101; RESP 18; TEMP 37.1; O2SAT 97
[2024-12-13 08:00] VITALS: BP 118/67; PULSE 102; RESP 20; TEMP 36.6; O2SAT 99
[2024-12-13] MEDS: SODIUM HYPOCHLORITE 0.125% 473ML SOLUTION TOP SCH (09:11)
[2024-12-13] MEDS: GADOTERATE MEGLUMINE 5 MMOL/10 ML VIAL IV ONE ×2 (09:43→11:25)
[2024-12-13 20:00] VITALS: BP 122/76; PULSE 96; RESP 17; TEMP 36.6; O2SAT 99
[2024-12-14 08:00] VITALS: BP 104/62; PULSE 97; RESP 18; TEMP 36.4; O2SAT 97
[2024-12-14 20:00] VITALS: BP 117/75; PULSE 93; RESP 18; TEMP 36.8; O2SAT 100
[2024-12-15 08:00] VITALS: BP 130/76; PULSE 57; RESP 18; TEMP 36.3; O2SAT 100
[2024-12-15] MEDS ORDERED: DIPHENHYDRAMINE 25MG CAPSULE PO PRN (12:30)
[2024-12-15 20:00] VITALS: BP 106/64; PULSE 64; RESP 18; TEMP 36.9; O2SAT 100
[2024-12-16 06:55] LABS: CREATININE 0.8 mg/dL (0.6-1.3); UREA NITROGEN BLOOD 27 mg/dL (9-23)
[2024-12-16 06:57] LABS: PHOSPHORUS 5.1 mg/dL (2.5-4.9)
[2024-12-16 06:58] LABS: PLATELET 402 x1000/uL (130-400); RED BLOOD CELL COUNT 3.51 mill/uL (4.7-6.1); RED CELL DISTRIBUTION WIDTH 15.0 % (11.6-14.6)
[2024-12-16 08:00] VITALS: BP 111/68; PULSE 83; RESP 20; TEMP 36.7; O2SAT 97
[2024-12-16 20:00] VITALS: BP 111/71; PULSE 100; RESP 18; TEMP 36.6; O2SAT 100
[2024-12-17 08:00] VITALS: BP 110/59; PULSE 98; RESP 16; TEMP 36.3; O2SAT 100
[2024-12-17] MEDS: MAGNESIUM/ALUMINUM HYDROXIDE/SIMETHICONE 30ML UDC PO PRN (10:00)
[2024-12-17 20:00] VITALS: BP 117/64; PULSE 95; RESP 18; TEMP 37.1; O2SAT 98
[2024-12-18 08:00] VITALS: BP 101/44; PULSE 90; RESP 16; TEMP 36.6; O2SAT 96
[2024-12-18 20:00] VITALS: BP 110/59; PULSE 98; RESP 20; TEMP 36.6; O2SAT 98
[2024-12-19 08:00] VITALS: BP 115/61; PULSE 108; RESP 19; TEMP 36.4; O2SAT 99
[2024-12-19 11:24] VITALS: BP 110/67; PULSE 86; RESP 20; TEMP 98.6
[2024-12-19 14:14] VITALS: BP 110/67; PULSE 86; RESP 20; TEMP 37; O2SAT 100
== END 2024-12-19 14:53 | DRG 197 ==
PROVIDERS: ADMIT Physical Medicine & Rehabilitation Spinal Cord Injury Medicine; ATTEND Hospitalist
PROC: GZ56ZZZ Individual Psychotherapy, Supportive (ICD-10-PCS; principal; 2024-11-30)
DX: I73.9 Peripheral vascular disease, unspecified (principal); A41.59 Other Gram-negative sepsis; L89.153 Pressure ulcer of sacral region, stage 3; L89.313 Pressure ulcer of right buttock, stage 3; L89.323 Pressure ulcer of left buttock, stage 3; E46 Unspecified protein-calorie malnutrition; A48.0 Gas gangrene; M86.172 Other acute osteomyelitis, left ankle and foot; L89.893 Pressure ulcer of other site, stage 3; N17.9 Acute kidney failure, unspecified; D63.8 Anemia in other chronic diseases classified elsewhere; E88.09 Other disorders of plasma-protein metabolism, not elsewhere classified; I27.20 Pulmonary hypertension, unspecified; G54.6 Phantom limb syndrome with pain; J90 Pleural effusion, not elsewhere classified; B85.0 Pediculosis due to Pediculus humanus capitis; L03.116 Cellulitis of left lower limb; G62.1 Alcoholic polyneuropathy; F17.210 Nicotine dependence, cigarettes, uncomplicated; R53.81 Other malaise; R26.9 Unspecified abnormalities of gait and mobility; L97.429 Non-pressure chronic ulcer of left heel and midfoot with unspecified severity; B96.4 Proteus (mirabilis) (morganii) as the cause of diseases classified elsewhere; F32.A Depression, unspecified; I10 Essential (primary) hypertension; J98.11 Atelectasis; K74.60 Unspecified cirrhosis of liver; K76.6 Portal hypertension; R18.8 Other ascites; D75.839 Thrombocytosis, unspecified; E03.8 Other specified hypothyroidism; F10.239 Alcohol dependence with withdrawal, unspecified; E55.9 Vitamin D deficiency, unspecified; D50.9 Iron deficiency anemia, unspecified; X58.XXXD Exposure to other specified factors, subsequent encounter; K59.00 Constipation, unspecified; F43.23 Adjustment disorder with mixed anxiety and depressed mood; Z78.9 Other specified health status; Z83.3 Family history of diabetes mellitus; Z86.718 Personal history of other venous thrombosis and embolism; Z89.511 Acquired absence of right leg below knee; Z89.611 Acquired absence of right leg above knee; Z91.81 History of falling; Z59.02 Unsheltered homelessness; Z79.899 Other long term (current) drug therapy; Z82.49 Family history of ischemic heart disease and other diseases of the circulatory system; T79.7XXD Traumatic subcutaneous emphysema, subsequent encounter; Z63.4 Disappearance and death of family member; Z68.23 Body mass index [BMI] 23.0-23.9, adult; S80.212D Abrasion, left knee, subsequent encounter; S80.211D Abrasion, right knee, subsequent encounter
CPT/HCPCS: 36415; 70553; 71045; 80048; 80053; 82024; 82533; 83001; 83002; 83735; 84100; 84134; 84146; 84402; 84403; 84439; 84443; 85025; 85027; 86376; 87070; 87077; 87186; 93005; 97110; 97140; 97150; 97162; 97166; 97530; 97535; 97542; A4606; A6449; A9577; J0692; J1650; J2405

== ENCOUNTER 2025-03-14 17:44 | Emergency (ER) | payer MEDICAID ==
[~2025-03-14] VITALS: Ht 170.2 cm; Wt 66.0 kg
[2025-03-14 17:46] VITALS: O2SAT 98
[2025-03-14 20:40] VITALS: BP 111/79; PULSE 96; RESP 22; TEMP 36.9; O2SAT 98
== END 2025-03-14 20:55 ==
LOC: ER 17:44
DX: S09.90XA Unspecified injury of head, initial encounter (principal); I10 Essential (primary) hypertension; E03.9 Hypothyroidism, unspecified; E11.9 Type 2 diabetes mellitus without complications; F17.200 Nicotine dependence, unspecified, uncomplicated; J44.9 Chronic obstructive pulmonary disease, unspecified; Z86.73 Personal history of transient ischemic attack (TIA), and cerebral infarction without residual deficits; Z89.511 Acquired absence of right leg below knee; Y04.0XXA Assault by unarmed brawl or fight, initial encounter; Y93.89 Activity, other specified; Y92.89 Other specified places as the place of occurrence of the external cause; Y99.8 Other external cause status
CPT/HCPCS: 99284